=== PATIENT | female | born 1955 | race Caucasian/White ===

== ENCOUNTER 2017-09-13 23:20 | Emergency (ER) | payer OTHER, MEDICARE ==
[~2017-09-13] VITALS: Ht 154.9 cm; Wt 106.6 kg
[2017-09-14] MEDS ORDERED: GABA300 PO (01:32)
[2017-09-14] MEDS ORDERED: CITA20 PO (01:32)
== END 2017-09-14 02:40 | disposition home or self-care (01) ==
LOC: ER 23:20
DX: G89.29 Other chronic pain (principal); M25.571 Pain in right ankle and joints of right foot; M25.572 Pain in left ankle and joints of left foot; M25.562 Pain in left knee; M25.561 Pain in right knee; Z88.0 Allergy status to penicillin; Z79.899 Other long term (current) drug therapy
CPT/HCPCS: 96372; 99283; J1885